=== PATIENT | male | born 1960 | race Caucasian/White ===

== ENCOUNTER 2024-10-26 12:03 | Emergency (ER) | payer MEDICARE ==
--- NOTE | 2024-10-26 12:12 | ERPHSYRPT ---
- History of Present Illness Time Seen by Provider: 10/26/24 12:11 Source: patient, family Exam Limitations: no limitations Physician History: This is a 64-year-old white male patient of Dr. Shepherd who arrives by private vehicle accompanied by his significant other. Patient fell approximately 1 week and has pain in his left hip. He has had chronic intermittent problems with this left hip. Patient does see a pain specialist, Dr. Galindo for chronic pain control. This patient has a history of COPD, hyperlipidemia and gastroesophageal reflux disease. Per patient report, patient has had left hip surgery hardware placed and has had some hardware removed in the past. He does not have a local orthopedic surgeon. He wants an x-ray to determine if there is been an acute, emergent injury. Occurred: last week Reason for Fall: slipped (Slipped on ice) Injuries/Pain Location: lower extremity (Left hip) Loss of Consciousness: no loss of consciousness Quality: aching Severity of Pain-Max: moderate Severity of Pain-Current: moderate Modifying Factors: Improves With: movement Associated Symptoms (Fall): denies symptoms Allergies/Adverse Reactions: No Known Drug Allergies Allergy (Verified 10/26/24 13:11) Home Medications: Hydrocodone/Acetaminophen [[place] 7.5-325 Tablet] 1 each PO Q4-6HPRN PRN 01/21/16 [History] Omeprazole 20 MG [Prilosec 20 mg] 20 mg PO DAILY 01/21/16 [History] Pravastatin Sodium 40 mg PO DAILY 01/21/16 [History] Tiotropium [place] Inhaler [Spiriva 18 Mcg/Cap Inhaler] 1 ea IH DAILY 01/21/16 [History] Gabapentin 300 mg PO HS 12/20/17 [History] Travel Risk - International Travel Have you traveled outside of the country in past 3 weeks: No - Emerging Infectious Disease Are you exhibiting symptoms associated with any current EIDs: No - Review of Systems Constitutional: No Symptoms Eyes: No Symptoms Ears, Nose, & Throat: No Symptoms Respiratory: No Symptoms Cardiac: No Symptoms Abdominal/Gastrointestinal: No Symptoms Genitourinary Symptoms: No Symptoms Musculoskeletal: Fall (Patient fell a week ago), Injury (Left hip) Skin: No Symptoms Neurological: No Symptoms Psychological: No Symptoms Endocrine: No Symptoms Hematologic/Lymphatic: No Symptoms Immunological/Allergic: No Symptoms All Other Systems: Reviewed and Negative - Past Medical History Neurological History: No Pertinent History Cardiac History: High Cholesterol Respiratory History: Other Endocrine Medical History: No Pertinent History Musculoskeletal History: Fractures Other Medical History: 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 - Nursing Vital Signs Nursing Vital Signs: Initial Vital Signs Temperature 97.2 F 10/26/24 12:19 Pulse Rate 71 10/26/24 12:19 Respiratory Rate 18 10/26/24 12:19 Blood Pressure 117/78 10/26/24 12:19 O2 Sat by Pulse Oximetry 99 10/26/24 12:19 Pain Scale Pain Intensity 6 - Esha Coma Score Best Eye Response (Esha): (4) open spontaneously Best Verbal Response ([place]): (5) oriented Best Motor Response (Esha): (6) obeys commands [place] Total: 15 - Physical Exam General Appearance: no apparent distress, alert, anxiety Head Injury: no evidence of injury Eye Exam: PERRL/EOMI, eyes nml inspection ENT Exam: airway nml, nml ext.inspection Neck Exam: supple, trachea midline, full range of motion, normal alignment Respiratory/Chest Exam: No chest tenderness, No respiratory distress Gastrointestinal Exam: No tenderness Rectal Exam: not done Back Exam: normal inspection, normal range of motion, No CVA tenderness, No vertebral tenderness Extremity Exam: normal inspection, normal range of motion, hip tenderness (Left hip to palpation. 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 as tested, nml cerebellar function, nml station & gait, sensation nml Skin Exam: normal color, warm, dry SpO2 Interpretation: normal O2 Delivery: Room Air - Course Nursing assessment & vital signs reviewed: Yes Ordered Tests: Active Orders 24 hr Category Date Time Status HIP UNI (2V) INCL PEL IF DONE Stat Exams 10/26/24 12:40 Completed LUMBAR COMPLETE (MIN 4 VIEWS) Stat Exams 10/26/24 12:41 Completed Medication Summary Discontinued Medications Generic Name Dose Route Start Last Admin Trade Name Freq PRN Reason Stop Dose Admin Hydromorphone HCl 0.5 mg 10/26/24 13:31 Hydromorphone 1 Mg/1ml Inj IM 10/26/24 13:32 STAT ONE Ondansetron HCl 4 mg 10/26/24 13:32 Zofran 4 Mg/Udtablet Orally Disintegrating PO 10/26/24 13:33 STAT ONE Orphenadrine Citrate 60 mg 10/26/24 13:32 Orphenadrine Citrate 60 Mg/2 Ml Vial IM 10/26/24 13:33 STAT ONE - Progress Progress: improved, pain not gone completely, re-examined Progress Note: 10/26/24 13:37 My medical decision making and the assignment of low complexity to this patient's medical issue today is based on review of the patient's past medical history, review the patient's medication list, reviewed patient drug allergy list, history present illness and physical findings on examination. The workup in this patient includes lumbar spine x-rays and left hip/pelvic x-rays. Differential diagnosis includes but is not limited to contusion left hip, lower back strain, left hip fracture/dislocation The following x-rays were interpreted by the radiologist and I reviewed the impressions: The lumbar spine x-ray shows no new or acute findings. Today's study was compared to the similar study dated January 2015. There is old innominate bone fracture and old left pubic rami fractures. The left hip/pelvic x-ray is compared to similar study dated October 2021. There is left hip degenerative arthropathy and no new/acute abnormalities. There is old innominate bone fracture and old left pubic rami fracture. Counseled pt/family regarding: diagnosis, need for follow-up, rad results Medical Desision Making - Independent Historian Additional History obtained from: Spouse - Diagnostic Testing Diagnostic test were ordered, analyzed, and reviewed by me: Yes Radiological Interpretation: Reviewed by me, Teleradiologist Report - Risk of complications Low Risk: Low risk of morbidity from additional dx testing or treatment - Departure Departure Disposition: Home Clinical Impression: Contusion of left hip, Low back pain Condition: Stable Critical Care Time: No Referrals: MISHA SHEPHERD MD [Primary Care Provider] - Follow up/PCP as directed Additional Instructions: Take your pain medicine as prescribed by your pain specialist. Call your pain specialist and primary care provider today, 10/26/2024, to make arrangements for follow-up appointment for further evaluation and management. You may follow-up in the [facility] orthopedic clinic. It is a Tuesday through Tuesday walk-in clinic. You do not need to have an appointment. Times are 8 AM to 10 AM.
[2024-10-26 12:20] VITALS: TEMP 97.2
--- NOTE | 2024-10-26 13:23 | XRAY ---
Indication: Status post fall one week ago. Comparison: January 29, 2015 5 view lumbar spine unchanged again demonstrating osteopenia, minimal levoscoliosis centered at L1, minimal L3-L5 endplate spurring, minimal L5-S1 disc space narrowing, moderate bilateral L5-S1 injected facet arthropathy, old left innominate bone fracture, and old left pubic rami fractures. No new/acute findings.
--- NOTE | 2024-10-26 13:25 | XRAY ---
Indication: Status post fall one week ago. Comparison: October 30, 2021 AP pelvis and 2 view left hip unchanged again demonstrating osteopenia, old left innominate bone fracture, old bilateral pubic rami fractures, and mild left hip degenerative arthropathy. No new/acute abnormalities.
[2024-10-26 13:36] VITALS: BP 110/70; PULSE 63; RESP 16; O2SAT 96
[2024-10-26] MEDS ORDERED: Hydromorphone 1 mg/ml Injection ONE (13:48)
[2024-10-26] MEDS ORDERED: Norflex 60 MG/2 ML ONE (13:48)
[2024-10-26] MEDS ORDERED: ZOFRAN ODT 4 MG ONE (13:48)
[2024-10-26] MEDS: Hydromorphone 1 mg/ml Injection IM ONE (13:50)
[2024-10-26] MEDS: ZOFRAN ODT 4 MG PO ONE (13:50)
[2024-10-26] MEDS: Norflex 60 MG/2 ML IM ONE (13:50)
== END 2024-10-26 14:17 | disposition home or self-care (01) ==
LOC: ED 12:03
DX: S70.02XA Contusion of left hip, initial encounter (principal); W00.0XXA Fall on same level due to ice and snow, initial encounter; M54.50 Low back pain, unspecified; E78.5 Hyperlipidemia, unspecified; Z79.899 Other long term (current) drug therapy
CPT/HCPCS: 72110; 73502; 99283; J1171; J2360; Q0162